=== PATIENT | male | born 1950 | race Caucasian/White ===

== ENCOUNTER → 2016-12-18 | Outpatient (CLI) | payer OTHER | LOC: FIMAGING 13:07 | PROVIDERS: ATTEND Internal Medicine Hematology & Oncology | DX: Z13.828 Encounter for screening for other musculoskeletal disorder (principal) ==

== ENCOUNTER 2018-12-31 02:52 | Inpatient (IN) | payer OTHER ==
[2018-12-31] MEDS ORDERED: ASPIRIN 81 MG CHEWABLE TAB PO ONE (03:04)
[2018-12-31 03:16] LABS: PLATELET COUNT 145 10^3/uL (150-400)
[2018-12-31] MEDS ORDERED: ONDANSETRON 4 MG/2 ML VIAL ONE (03:25)
[2018-12-31] MEDS ORDERED: ONDANSETRON 4 MG/2 ML VIAL IVP ONE ×2 (03:26→03:27)
--- NOTE | 2018-12-31 03:38 | EDPHY ---
H & P Stated Complaint: CP since 1800 Time Seen by Provider: 12/31/18 02:58 HPI/ROS: HPI The patient presents with epigastric and chest pain which has been present since 6:00 p.m. Last night after eating a hamburger for dinner. The pain is dull and aching, radiates to his left armpit and is associated with some tingling of his left arm. He has nausea and fatigue as well. He tried taking baking soda, Tums, senna at home with no improvement in his symptoms. He sat in a chair and tried to rest. He tried to sleep and was not able to.. REVIEW OF SYSTEMS 10 systems were reviewed and negative with the exception of the elements mentioned in the history of present illness. PMHx: Hypertension, history of gastric ulcer, had a stress test in 2004 which he believes was negative Soc Hx: Here with his , previous cigarette smoker FHx: No family history of CAD PHYSICAL General Appearance: Alert, no distress Eyes: Pupils equal and round no pallor or injection ENT, Mouth: Mucous membranes moist Respiratory: There are no retractions, lungs are clear to auscultation Cardiovascular: Regular rate and rhythm Gastrointestinal: Abdomen is soft and non-tender, no masses, bowel sounds normal Neurological: A&O, moves all extremities Skin: Warm and dry, no rashes Musculoskeletal: Neck is supple non tender Extremities: symmetrical, full range of motion Psychiatric: Patient is oriented X 3, there is no agitation Source: Patient Exam Limitations: No limitations - Personal History Current Tetanus/Diphtheria Vaccine: Yes - Medical/Surgical History Hx Asthma: No Hx Chronic Respiratory Disease: No Hx Diabetes: No Hx Cardiac Disease: No Hx Renal Disease: No Hx Cirrhosis: No Hx Alcoholism: No Hx HIV/AIDS: No Hx Splenectomy or Spleen Trauma: No Other PMH: irrgular heartbeat, esophogus spasm, - Social History Smoking Status: Former smoker Constitutional: Initial Vital Signs Temperature (C) 36.9 C 12/31/18 02:53 Heart Rate 92 12/31/18 02:53 Respiratory Rate 18 12/31/18 02:53 Blood Pressure 130/87 H 12/31/18 02:53 O2 Sat (%) 96 12/31/18 02:53 O2 Delivery Mode Nasal Cannula O2 (L/minute) 2 Allergies/Adverse Reactions: No Known Allergies Allergy (Verified 12/31/18 09:44) Home Medications: Medication Instructions Recorded Aspirin [Aspirin 81mg (*)] 81 mg PO DAILY 12/31/18 C/E/Zn/Cu/OM3/DHA/EPA/LUT/ZEAX 2 each PO DAILY 12/31/18 [Preservision Areds 2 Softgel] Carvedilol Phosphate [Coreg Cr] 40 mg PO DAILY 12/31/18 Cholecalciferol Vit D3 [Vitamin D3 1,000 units PO DAILY 12/31/18 (*)] Herbals/Supplements -Info Only 1 ea PO DAILY 12/31/18 Lansoprazole [Prevacid] 30 mg PO DAILY 12/31/18 Lipase/Protease/Amylase [Vishnu Delacruz 1 each PO TID PRN 12/31/18 36,000 Units Capsule] Lipase/Protease/Amylase [Vishnu Delacruz 2 each PO TIDMEAL 12/31/18 36,000 Units Capsule] Ranitidine HCl [Zantac] 300 mg PO HS 12/31/18 Medical Decision Making - Diagnostics EKG Interpretation: EKG: Complete interpretation has been separately recorded in the [facility] archive. Summary impression: ST segment depression in lateral leads Differential Diagnosis: 68-year-old man with hypertension, esophageal spasm, history of throat CA presents from home with epigastric pain with radiation to his left axilla since 6:00 p.m. Last night continuously. Here, vital signs are normal, he is generally well-appearing. Plan for aspirin, morphine as needed. Differential includes ACS, GERD, gastritis. 3:25 a.m.- Patient's troponin is elevated at 6. I have paged the [employer] network engineer Dr. Xie. 3:34 a.m.- I discussed the case with Dr. Xie given the patient's ST segment depressions , we will take the patient to the ear mold laboratory technician. We have called a cardiac alert. The patient will be taken directly there. Critical Care Time: CRITICAL CARE Critical care time spent by me, Dr. Hyatt, exclusively with this patient was 20 minutes, exclusive of PA time and exclusive of procedures. The organ system at risk was cardiac and I gave morphine, aspirin, emergently transfer the patient to the cardiac catheterization lab to prevent worsening of the patients condition. - Data Points Laboratory Results: Laboratory Results 12/31/18 03:12/31/18 03:05 Medications Given: Aspirin Buffered (Aspirin Ec) 325 mg PO DAILY [facility] Stop: 06/29/19 08:59 Last Admin: 12/31/18 09:52 Dose: 325 mg Famotidine (Pepcid) 20 mg PO BID [facility] Stop: 06/29/19 08:59 Last Admin: 12/31/18 21:27 Dose: 20 mg Lisinopril (Zestril) 2.5 mg PO DAILY [facility] Stop: 06/29/19 08:59 Last Admin: 12/31/18 09:52 Dose: 2.5 mg Metoprolol Tartrate (Lopressor) 12.5 mg PO BID [facility] Stop: 06/29/19 08:59 Last Admin: 12/31/18 21:27 Dose: 12.5 mg Miscellaneous Medication (Lipase/Protease/Amylase [Creon Dr 36,000 Units Capsule ]) 2 each PO TIDMEAL [facility] Stop: 06/29/19 17:59 Last Admin: 12/31/18 17:28 Dose: Not Given Ondansetron HCl (Zofran) 2 - 4 mg IVP Q6HRS PRN PRN Reason: Nausea/Vomiting, Can't Take PO Stop: 06/29/19 05:05 Last Admin: 12/31/18 06:47 Dose: 4 mg Rosuvastatin Calcium (Crestor) 20 mg PO DAILY [facility] Stop: 06/29/19 08:59 Last Admin: 12/31/18 09:52 Dose: 20 mg Discontinued Medications Aspirin (Aspirin) 324 mg PO EDNOW ONE Stop: 12/31/18 03:05 Last Admin: 12/31/18 03:10 Dose: 324 mg Sodium Chloride (Ns) 1,000 mls @ 100 mls/hr IV CONT [facility] Stop: 12/31/18 15:14 Last Admin: 12/31/18 05:49 Dose: 1,000 mls Morphine Sulfate (Morphine) 2 mg IVP EDNOW ONE Stop: 12/31/18 03:29 Last Admin: 12/31/18 03:31 Dose: 2 mg Ondansetron HCl (Zofran) 2 mg IVP EDNOW ONE Stop: 12/31/18 03:27 Last Admin: 12/31/18 03:52 Dose: Not Given Ondansetron HCl (Zofran) 4 mg IVP EDNOW ONE Stop: 12/31/18 03:28 Last Admin: 12/31/18 03:29 Dose: 4 mg Prasugrel (Effient) 60 mg PO ONCE ONE Stop: 12/31/18 05:07 Last Admin: 12/31/18 05:42 Dose: 60 mg Point of Care Test Results: Chemistry 12/31/18 03:08 POC Troponin I 6.56 ng/mL H ng/mL (0.00-0.08) Departure - Departure Disposition: [facility] Acute Clinical Impression: Chest pain, Acute coronary syndrome Condition: Fair
[2018-12-31] MEDS ORDERED: CLOPIDOGREL BISULFATE 75 MG TAB ONE (03:49)
[2018-12-31] MEDS ORDERED: LIDOCAINE 1% 300 MG/30 ML SDV ONE (04:07)
[2018-12-31] MEDS ORDERED: fentaNYL 100 MCG/2 ML INJ ONE (04:07)
[2018-12-31] MEDS ORDERED: MIDAZOLAM 2 MG/2 ML VIAL ONE (04:07)
[2018-12-31] MEDS ORDERED: IOPAMIDOL (ISOVUE-370) 150 ML BTL IV ONE (04:08)
[2018-12-31] MEDS ORDERED: BIVALIRUDIN 250 MG/5 ML VIAL IV ONE (04:29)
[2018-12-31] MEDS ORDERED: EPINEPHrine 1 MG/10 ML SYR IVP ONE (04:29)
[2018-12-31] MEDS ORDERED: ATROPINE SULFATE 1 MG/10 ML SYR ONE (04:29)
[2018-12-31] MEDS ORDERED: PRASUGREL HCL 10 MG TAB ONE (05:00)
[2018-12-31] MEDS ORDERED: OXYCODONE/APAP 5/325 TAB PO PRN (05:06)
[2018-12-31] MEDS ORDERED: NITROGLYCERIN 0.4 MG BTL SL PRN (05:06)
[2018-12-31] MEDS ORDERED: ONDANSETRON 4 MG/2 ML VIAL IVP PRN (05:06)
[2018-12-31] MEDS ORDERED: PRASUGREL HCL 10 MG TAB PO ONE (05:06)
[2018-12-31] MEDS ORDERED: ATROPINE SULFATE 1 MG/10 ML SYR IVP PRN (05:06)
[2018-12-31] MEDS ORDERED: LORazepam 2 MG/ML INJ IVP PRN (05:06)
[2018-12-31] MEDS ORDERED: TEMAZEPAM 15 MG CAP PO PRN (05:06)
[2018-12-31] MEDS ORDERED: HYDROCODONE/APAP 5/325 TAB PO PRN (05:06)
[2018-12-31] MEDS ORDERED: NS 1,000 ML IV SCH (05:15)
--- NOTE | 2018-12-31 05:34 | PDPROPOC ---
Sedation Plan of Care Sedation Plan of Care: vital signs stable, mental status noted, patient educated of risks, benefits, alternatives, patient can tolerate sedation ASA Classification: ASA 4 Planned drugs: fentanyl, midazolam Mallampati Score: Class 2 Mallampati Reference Image: Patient passed 3-3-2 rule?: Yes
--- NOTE | 2018-12-31 06:07 | GHP ---
[f rep st] HISTORY AND PHYSICAL DATE OF ADMISSION: 12/31/2018 The patient is a 68-year-old man with a past medical history significant for recent endoscopy perform ed because of iron deficiency anemia on 12/17/2017, revealing a small gastric ulceration without feat ures of active bleeding, as well as multiple other excoriations consistent with gastritis. The patie nt was also found to have a sessile polyp in the region within the sigmoid colon that was biopsied an d thought to represent colitis. He went to his GI doctor for followup of that issue and was told stephanie t the biopsies were negative for cancer. 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 The lymph nodes were negative and he was thought to have a surgical cure in 2004. The patient was placed on Prevacid in the morning and Zantac 150 mg in the afternoon. After dinner l ast evening, began to experience chest pressure and tightness which radiated into the inner aspect of his left arm and was associated with 8/10 discomfort. The discomfort decreased initially but then w axed and waned and became more severe, causing him to present to the emergency department after he di d not have improvement with baking soda, Tums or senna at home. He was unable to sleep secondary to chest pain and only came to the hospital for further evaluation. Of note is that the patient had a h istory also of esophageal spasm in the past with very similar symptoms, except when he had an esophag eal spasm 15 years ago he did not experience pain radiating into the left arm at that time. The patient presented to the emergency department with active chest pain in progress. An EKG was obt ained at 3:02. I was called at 3:35 because a point of care troponin came back at 6 after the patien t had incomplete resolution of his chest pain symptoms with morphine. REVIEW OF SYSTEMS: A 10-point review of systems other than recently noted symptoms is negative excep t as listed in the history of present illness. PAST MEDICAL HISTORY: Significant in the ER record for history of hypertension which the patient den ies, history of gastric ulcer diagnosed 12/17 via an EGD. He also has recent iron deficiency anemia, which is what prompted the upper and lower endoscopy identifying a sessile polyp in his colon. He a lso has a history of esophageal spasm as previously mentioned as well as a tonsillar cancer with lymp h node dissection on the right side. PAST SURGICAL HISTORY: Significant for bilateral hernia repair as well as a vasectomy. 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 He is here with h is . He is a previous cigarette smoker and used to drink alcohol but quit both of those after hi s cancer diagnosis. FAMILY HISTORY: Negative except that he remembers that his father had a cardiac event of some type l ater in life. PHYSICAL EXAMINATION: The patient appears worried. He is alert, oriented x3. VITAL SIGNS: Initial ly showed a blood pressure of 131/87, heart rate was 76 and regular, respirations 16 and unlabored. The patient has a 99% sat on 2 L via nasal cannula. NECK: Reveals no JVD. There is a well-healed i ncision/scar of right-sided lymph node dissection. This does not appear to have been a radical neck dissection. HEART: Reveals a normal S1 and S2 with a systolic 2/6 systolic murmur consistent with m itral regurgitation. There are no carotid bruits. HEART: Reveals normal S1, S2 without S3, S4. CORY NGS: Clear to auscultation bilaterally without wheezes, rales or rhonchi. ABDOMEN: Benign with pos itive bowel sounds. It is nondistended, nontender. EXTREMITIES: Warm to touch and dry with intact peripheral pulses in the femoral, dorsalis pedis, posterior tibial, and radial distribution bilateral ly. PSYCHIATRIC: Significant for worry and anxiety, but again the patient is alert and oriented x3 and cooperative. NEUROLOGICAL: Nonfocal in spite of his left-sided and left arm discomfort and weak ness. He has normal handgrip strength on the right and left side and does not have lateralizing sign s on examination. LABORATORY STUDIES: Reveal a white count of 9.72, H and H of 15.1 and 43.0, platelet count 145, the RDW is 15.4, neutrophils are 78.7, lymphocytes are 9.8. The absolute neutrophils are high at 7.65 co nsistent with a demarginating process. Chemistry shows sodium 137, potassium 3.8, chloride 102, BUN and creatinine of 19 and 0.8 with a glucose of 142, which is a nonfasting sample. Calcium is 9.2. P oint of care troponin is 6.56 as an initial measurement. The EKG shows normal sinus rhythm with an abnormal ST-T wave contour in lead III. There is also ST d epression with early R-wave progression in V2, V3, and V4, consistent with ischemia. There are micro Q-waves in II, III, and aVF which are of unclear significance given that they do not meet criteria f or pathological Q-waves. The EKG is most impressive for an injury pattern in lead III as well as rec iprocal change if not posterior injury pattern in the precordial leads extending from V2 through V6. The chest x-ray does not reveal x-ray evidence of aortic dissection. Both the EKG and the chest x-r ay are interpreted by me. The patient has increased markings in the interstitium which may be consis tent with early failure. There is no evidence of pneumothorax or an active pneumonia. There are anastacia nges consistent with old granulomatous disease and as I said, the aortic contour is normal. There ar e osteophytes of thoracic spine consistent with the patient's age with the fusion of anterior bodies. I do not identify another acute process or abnormalities within the soft tissue of the visualized p ortion of the chest. IMPRESSION/PLAN: The patient has ongoing chest pain in spite of intravenous morphine and oral aspiri n and has an abnormal EKG and elevated troponin consistent with at minimum a subendocardial myocardia l infarction with possible posterior extension. The patient would benefit from emergent cardiac cath eterization and therefore cardiac alert has been called. I have explained the risks, benefits, and a lternatives of angiography to the patient, who understands and willing to proceed as planned, with sp ecific attention to the fact that he was recently diagnosed with a gastric ulcer, and if indeed he is found to have obstructive coronary disease as is expected on the basis of his EKG and troponin findi ngs as well as clinical symptoms, that he may be at greater risk than average for bleeding which may require transfusion. He would therefore be typed and screened for blood, and the patient has agreed to receive blood if it was felt to be necessary to receive blood products in the event that it was be ing given to try to save his life. I discussed these matters in detail with the patient's family, in detail but quickly given the urgency of the patient's clinical condition and his ongoing chest disco mfort. Copy requested to: Patient's GI Doctor /[id number]/MODL
--- NOTE | 2018-12-31 06:32 | CPIP ---
[f rep st] INVASIVE CARDIAC PROCEDURE PROCEDURE PERFORMED: 1. Selective coronary angiography. 2. Left heart catheterization. 3. Left ventriculogram. 4. Angio-Seal arteriotomy repair. COMPLICATIONS: None. INDICATIONS: Acute subendocardial myocardial infarction with suspected inferior injury and possible posterior extension on the EKG COMPLICATIONS: None. PROCEDURE IN DETAIL: After informed consent was obtained, n.p.o. status was performed. The region of the right groin was cleaned, prepped, and draped in sterile fashion. The patient received approximately 10 cc of 1% lidocaine for local anesthesia. A micropuncture set was used to gain access to the common femoral artery on the right side. The micropuncture set was exchanged for a regular 6-Cambodian short sheath. The patient then underwent the previously mentioned diagnostic procedure with use of a 6-Cambodian JR4 and 6-Cambodian JL4 diagnostic catheter. Standard wire exchange technique was utilized for all catheter exchanges. A 6-Cambodian pigtail catheter was also used and ultimately a 6-Cambodian Cordis guiding catheter was used for guide catheter support. Standard wire exchange technique was used for all catheter exchanges. The right coronary artery is dominant and approximately 3-1/2 mm in size. It is totally occluded at the acute margin of the heart and distal to a conus and RV branch. There is JHON 0 flow without evidence of right to right collaterals. The left main coronary lumen is approximately 6 mm in size and bifurcates into an LAD and circumflex system. The LAD is approximately 3 mm in size and has luminal irregularity consistent with underlying atherosclerosis. The left main trifurcates into an LAD, ramus, and circumflex system. The ramus vessel is approximately 1.5 mm in size and is a relatively small vessel. The circumflex is approximately 3.5 mm in size and has an 80% stenosis in its proximal segment prior to giving rise to a bifurcating obtuse marginal system. There is complex atheroma involving the bifurcation of the alpha and beta branches of the circumflex obtuse marginal system as well. The LAD is approximately 3 mm in size proximally, giving rise to a long and principal diagonal vessel. The LAD has luminal irregularity consistent with underlying atherosclerosis. Maximal luminal stenosis is approximately 40% in the proximal segment. There is JHON-3 flow throughout the left coronary system, and I do not appreciate evidence of significant distal collaterals, although weak left-to -left collaterals to a very distal and dominant right coronary artery branch is best visualized in an JONAS and cranial projection. We turned our attention to the right coronary lesion. The patient received intravenous bolus of and infusion of Angiomax, and appropriate ACT was documented during the case. A 6- Cambodian JR4 Cordis catheter was used for guide catheter support. A 0.01 intuition wire was advanced across the lesion in question under direct fluoroscopic and angiographic guidance. A 2-0 x 12 Emerge balloon was used for primary angioplasty of the lesion to improve flow from JHON 0 to JHON 1 with residual 80% stenosis and residual visible thrombus within the vessel, looked to be a fairly large thrombus burden. A 3.5 x 28 synergy drug-eluting stent was used to secondarily stent the blood vessel at a maximum pressure of 14 atmospheres, demonstrating excellent and JHON-3 flow. We were able to trap the majority of the thrombus against the sidewall of the blood vessel. There was no evidence of edge dissection. There were distal luminal irregularities consistent with underlying atherosclerosis. Maximal luminal stenosis was at the PDA and PLV branch takeoff with estimated stenosis of 30% each in those vessels. The right coronary artery is so-called superdominant as it continues in the posterior AV groove, giving rise to multiple posterolateral ventricular branches, which often usually arise from the circumflex proper. This is a congenital variation of normal cardiac circulation. There was 0% residual stenosis status post PTCA and stent implantation with excellent JHON-3 flow to the distal vessel and no evidence of edge dissection at the proximal or distal region of the stent implantation. There was good stent geometry and good stent expansion as well. The patient underwent left heart catheterization demonstrating elevated left ventricular end-diastolic pressure measured at 26 mmHg. The patient underwent a left ventriculogram in the JONAS projection, demonstrating preserved anterior wall and distal apical function with severe inferior wall hypokinesis with associated significant 2 to 3+ mitral regurgitation on pressurized injection. Overall ejection fraction was estimated to be 35-40 percent. FINAL IMPRESSION: Successful acute infarction angioplasty for indication of chest pain and abnormal EKG suggestive of inferior injury with probable true posterior injury. Door to balloon time was delayed secondary to a 35-minute gap between the initial EKG and the call to the cardiac alert team if a door to balloon time needs to be recorded in this patient with a confusing initial presentation and history of esophageal spasm as well as gastric ulcer recently diagnosed with pain beginning after a meal. The patient will be admitted to the ICU in serious, but stable condition, and the patient will be initiated on aspirin and Effient in combination. I will also place the patient on low-dose beta kamla and GÓMEZ inhibitor as tolerated. A fasting lipid panel will be obtained. The patient will be placed on rosuvastatin 20 given the diffuse nature of his coronary disease. The patient' s troponins and EKGs will be trended over the next 18 hours, and an echocardiogram will need to be performed to evaluate for ejection fraction and papillary muscle dysfunction given the location of the NH and the visible mitral regurgitation on clinical examination, as well as on the left ventriculogram. The patient may benefit in the future from a balloon angioplasty and stent implantation of the circumflex as well as repair of the alpha and beta branch bifurcation of a significant obtuse marginal system posteriorly. I did not attempt to do ad Hoc intervention of that region given the RCA occlusion with distal and posterior wall extension. The reason for that consideration was that if we lost blood flow to that region of his heart as well with a significant stunning and reduction in ejection fraction, that it may be dangerous to the patient and do more harm than good in the acute setting. Certainly, an elective PCI of the proximal circumflex and obtuse marginal system should be considered, especially if the patient has evidence of symptoms or has a large zone of ischemia in that region once he has recovered from the acute myocardial injury process. /[id number]/MODL MTDD
--- NOTE | 2018-12-31 09:32 | PDMN ---
Medical Necessity Medical necessity: MCG: M230 SD 2 days: 68yo M presents with chest pressure /tightness radiating to L arm 8/10 discomfort. unable to sleep EKG abnormal with elevated trop consistent with min. subendocardial SD. with poss posterior extension pt taken emergently to cardiac cath.
[2018-12-31] MEDS: ROSUVASTATIN CALCIUM 20 MG TAB PO SCH (09:52)
[2018-12-31] MEDS: ASPIRIN EC 325 MG TAB PO SCH (09:52)
[2018-12-31] MEDS: FAMOTIDINE 20 MG TAB PO SCH ×2 (09:52→21:27)
[2018-12-31] MEDS: METOPROLOL TARTRATE 25 MG TAB PO SCH ×2 (09:52→21:27)
[2018-12-31] MEDS: LISINOPRIL 2.5 MG TAB PO SCH (09:52)
--- NOTE | 2018-12-31 11:56 | ASMTCMCOM ---
CM Note CM Note Notes: Pt is a 68 yo M, presented as cardiac alert. Underwent emergent heart cath. Plans for stent to be placed on Thursday. Pt's is at bedside and supportive. CM to follow. Discharge plan TBD. Plan: TBD Date Signed: 12/31/2018 11:55 AM Electronically Signed By:HAI Coronel
[2018-12-31] MEDS: CREON 36000 UNIT PO SCH (17:28)
--- NOTE | 2018-12-31 17:34 | GCON ---
[f rep st] CONSULTATION CRITICAL CARE CONSULTATION DATE OF CONSULTATION: 12/31/2018 REASON FOR CONSULTATION: Intensive care unit evaluation and management following myocardial infarcti on and stenting. HISTORY: The patient is a very pleasant 68-year-old. He developed chest pain last night after dinne r. This radiated to his left arm, waxed and waned, and did not respond to positional changes, Tums, etc. He presented to the emergency department. He was initially felt to have a GI related pain issu e, as he has had a problem with reflux and gastric ulceration in the past. Troponin was found to be elevated. Cardiac alert was called. He was taken to the cleaning laborer where the right coronary artery wa s found to be occluded. Stenting was accomplished. A lesion was also found in the circumflex, 80%, with an LAD lesion of approximately 40%. These are going to be addressed in a few days. Following t he procedure, the patient was admitted to the intensive care unit for further observation in good con dition. He has received anti-platelet therapy with Effient and aspirin. He is on lisinopril and met oprolol as well. He has had no problems in the intensive care unit. He feels fairly well at this point, has no compla ints, no chest pain. 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 Surgeries have included herniorrhaphy and vasectomy. SOCIAL HISTORY: The patient is retired. 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 He is ma rried, lives on property outside of [place]. He smoked cigarettes in the past, but has not smoked for approximately 15 years. Alcohol is negative. FAMILY HISTORY: Negative/noncontributory. REVIEW OF SYSTEMS: A 10-point review of systems is negative, except as outlined above. There is no history of smoking-related lung disease. PHYSICAL EXAMINATION: GENERAL: Pleasant gentleman who is lying comfortably in bed in the intensive care unit. He is on no oxygen. VITAL SIGNS: Blood pressure is approximately 140/70, heart rate 70 with sinus rhythm on the monitor. Saturations are 95%. He is afebrile. HEENT: Unremarkable for ly mphadenopathy or thyromegaly. There is no jugular venous distention. CHEST: Clear bilaterally. HE ART: Regular in rate and rhythm. There are no gallops, no murmurs. ABDOMEN: Soft, nontender. [place] el sounds are present. EXTREMITIES: Without edema, cords, or tenderness. NEUROLOGIC: Examination is within normal limits. LABORATORY: White blood cell count is 9700, hematocrit 43, platelets 145,000. Basic metabolic panel is within normal limits. Troponin was 6.5 on admission, most recently 92. AST is elevated at 156. Cholesterol is low. ASSESSMENT: 1. Coronary artery disease. 2. Acute myocardial infarction. 3. Status post stenting of the right coronary artery. 4. History of gastroesophageal reflux and recent gastric ulcer. He is on famotidine. 5. History of squamous cell carcinoma of the tongue. PLAN AND RECOMMENDATIONS: The patient will be kept in the intensive care unit. Cardiac hemodynamics will be monitored. Anti-platelet agents will be continued along with lisinopril and metoprolol. Fa motidine will be continued. By report, the plans are to repeat cardiac catheterization and possibly stent the circumflex in several days. Further plans and recommendations will be made based on his progress over the next 12-24 hours. /[id number]/MODL
[2019-01-01 04:57] LABS: PLATELET COUNT 124 10^3/uL (150-400)
[2019-01-01] MEDS: ASPIRIN EC 325 MG TAB PO SCH (08:43)
[2019-01-01] MEDS: FAMOTIDINE 20 MG TAB PO SCH ×2 (08:43→21:00)
[2019-01-01] MEDS: METOPROLOL TARTRATE 25 MG TAB PO SCH ×2 (08:44→21:00)
[2019-01-01] MEDS: PRESERVISION AREDS2 FORMULA EYE VIT 1 EACH PO SCH (08:44)
[2019-01-01] MEDS: PRASUGREL HCL 10 MG TAB PO SCH (08:44)
[2019-01-01] MEDS: LISINOPRIL 2.5 MG TAB PO SCH (08:44)
[2019-01-01] MEDS: CREON 36000 UNIT PO SCH ×4 (08:47→18:18)
[2019-01-01] MEDS ORDERED: Herbals/Supplements -Info Only PO SCH (09:00)
--- NOTE | 2019-01-01 10:01 | PDCARPN ---
Cardiology Progress Note Chief Complaint: Patient doing well today. No further bouts of chest pains or discomfort have been noted Assessment/Plan: Assessment: Patient is a 68 y/o male with history of tonsillar cancer (squamous cell), HTN, a "viral" cardiomyopathy (for which the patient had regular cardiology follow up in [place] several years ago), borderline DM, and gastric ulcer, but no history of HLP or CAD, who presented to [facility] ER with complaints of chest pains with associated symptoms. ECG and labs (cardiac biomarkers) with abnormalities noted, and the patient was subsequently taken to the cardiac catheter builder by my partner, Dr. Deborah Xie. Complete occlusion of the RCA (a superdominant vessel) was noted as well as critical LCX (80%) and moderate LAD (40%). Moderate reduction in LVEF was noted by left ventriculogram (35-40%). Yesterday, the patient did well without reports of significant ventricular ectopy. Echocardiography was performed, but formal read is pending. Troponin peak to 92 ng/mL (down to 56 ng/mL yesterday afternoon). was at bedside today. Questions about medical therapy were answered today. Plan: (1) ASA therapy for life given newly stented RCA lesion as well as residual stenosis to the LCX - aware of the GI/gastritic history (2) Effient should continue for a minimum of one year given the DINORAH PCI (3) Crestor should continue for the newly noted CAD with PCI - aware of the fact that the patient has not had "bad" cholesterol issues in the past, but this therapy should be started to further suppress LDL/TRI levels - would have reassessment of both cholesterol and LFTs in 5 weeks (4) Beta blockers and ACEi therapy for the CMP (ischaemic) that has been noted post PCI - would prefer the patient be on Coreg therapy at the time of discharge ( rather than lopressor) (5) Pepcid to continue with gastritis history (6) Cardiac rehab to be set up (7) Patient with residual LCX stenosis noted - no clear time frame on intervention has been discussed with the patient - son's wedding in three weeks (out of state) might make more aggressive management of this lesion more appealing to patient rather than attempts at addressing this (a) closer to the wedding or (b) after the wedding - will discuss with interventional cardiology Subjective: Patient doing well today. No active cardiovascular complaints Reviewed/Discussed With: family Objective: Vital Signs (8 Hrs) Temp Pulse Resp BP Pulse Ox 01/01/19 08:44 92/60 L 01/01/19 08:00 36.6 C 84 16 92/60 L 94 01/01/19 06:00 66 17 90/59 L 95 01/01/19 04:00 70 13 94/60 L 93 Intake/Output (24 Hrs) 12/31/18 01/01/19 01/02/19 05:59 05:59 05:59 Intake Total 710 Balance 710 Intake: IV Intake (ml) 600 IV Infused (ml) 110 Ns 1,000 ml @ 100 mls/hr 110 IV CONT MEKA Rx#: [id number] Other: Weight 94.5 kg Intake Quantity Yes Sufficient Number of Voids Toilet 2 Result Diagrams: 01/01/19 04:47 01/01/19 04:47 Cardiac Labs: Cardiac Lab Results (72 Hrs) 12/31/18 12/31/18 12/31/18 19:00 12:30 05:55 Troponin I 58.600 H 92.900 H 87.000 H EKG: sinus rhythm with IVCD and subtle ST/T wave changes to the inferior leads Telemetry: sinus rhythm Echocardiogram: see formal read - Physical Exam Constitutional: WDWN, healthy appearing, no apparent distress Eyes: PERRL, EOMI Ears, Nose, Mouth, Throat: moist mucous membranes Cardiovascular: regular rate and rhythm, no murmurs, no rubs, no gallops, pulses symmetric bilat, No jugular vein distention Peripheral Pulses: 2+: dorsalis-pedis (R), dorsalis-pedis (L) Respiratory: clear to auscultate bilat, no crackles, no wheezes Gastrointestinal: normoactive bowel sounds Skin: no rashes, no edema Musculoskeletal: no muscular tenderness Neurologic: AAOx3, CN II-XII grossly intact Psychiatric: cooperative, interactive, following commands ICD10 Worksheet Patient Problems: Problems Problem Status Onset Acute coronary syndrome Acute Chest pain Acute Myocardial infarct Acute
--- NOTE | 2019-01-01 10:36 | ECHO ---
[email or web address] [address] [address] Main: [phone] Echocardiography Examination Transthoracic Name: TAMARA COLLINS MR#: [id number] Study Date: 01/01/2019 Study Time: 07:36 AM Date of : 1950 Age: 68 year(s) Height: 190.5 cm (75 in.) Weight: 94.35 kg (208 lb.) BSA: 2.23 m2 Gender: Male Examination: Echo Contrast: Image Quality: Fair Rhythm: Heart Rate: BP: 90 mmHg/59 mmHg Indication: LV recovery/Eval MR Procedure Staff Referring Physician: Specialty Sales Representative: Jennifer Mcduffie [facility] Reading Physician: Justin Segura MD Requesting Provider: Ordering Physician: Brennon Fam MD Indication: LV recovery/Eval MR Measurements Chambers AV/MV Label Value Normal Value Label Value Normal Value EF lower range (%) 45 % AV PGmean 3 mmHg EF upper range (%) 50 % AV Vmax 1.06 m/s IVSd, 2D 1.1 cm (0.6cm - 1.1cm) MV A Vmax 0.81 m/s LVDd, 2D 5.8 cm (4.2cm - 5.9cm) MV E' lateral 0.06 m/s LVDs, 2D 4.6 cm (2.1cm - 4cm) MV E' mean 0.06 m/s LVEF, 2D 41 % (54% - 74%) MV E' septal 0.07 m/s LVOTd 2.1 cm (1.9cm - 2.1cm) MV E Vmax 0.8 m/s LVPWd, 2D 1.2 cm (0.6cm - 1cm) MV E/A 0.99 LA Volume, BP 48 ml (18ml - 58ml) MV E/E' lateral 12.9 LADs, 2D 4.3 cm (3cm - 4cm) MV E/E' mean 12.31 LAESV index, BP 21.5 ml/m2 MV E/E' septal 12 (0.45 - 1.25) Additional Vessels Label Value Normal Value AoAsc 3.6 cm Conclusions Left Ventricle: Mildly reduced systolic left ventricular function. Patient: TAMARA COLLINS Study Date: 01/01/2019 Page 1 of 3 07:36 AM EF range is estimated at 45 % - 50 %. The basal inferolateral and mid inferolateral left ventricular wall segments are hypokinetic (2). The left ventricular wall segments are akinetic (3). All remaining scored left ventricular wall segments are with no wall motion abnormalities (1). Right Ventricle: Right ventricular systolic function is mildly reduced. Mitral Valve: Mitral valve appears structurally normal. Mild mitral regurgitation. Findings Left Ventricle: Left ventricle is normal in size. Mildly reduced systolic left ventricular function. EF range is estimated at 45 % - 50 %. There is mild concentric left ventricular hypertrophy. The basal inferolateral and mid inferolateral left ventricular wall segments are hypokinetic (2). The basal inferior and mid inferior left ventricular wall segments are akinetic (3). All remaining scored left ventricular wall segments are with no wall motion abnormalities (1). Grade I Diastolic Dysfunction. IVS: The septum is intact. Right Ventricle: Normal size right ventricle. Right ventricular wall thickness is normal. Right ventricular systolic function is mildly reduced. Left Atrium: The left atrium is normal in size. IAS: Normal appearing atrial septum. Right Atrium: The right atrium is dilated. Mitral Valve: Mitral valve appears structurally normal. Mild mitral regurgitation. No mitral valve stenosis. Aortic Valve: Aortic leaflets exhibit normal cuspal separation. No aortic valve regurgitation. There is no aortic stenosis. The aortic valve is trileaflet. Tricuspid Valve: Tricuspid valve leaflets are normal in appearance and function. Mild tricuspid regurgitation. No tricuspid valve stenosis. Pulmonary artery pressure normal. Pulmonic Valve: Pulmonic leaflets exhibit normal cuspal separation. No pulmonic valve regurgitation is evident. There is no pulmonic valve stenosis. Aorta: The aorta is normal. The ascending aorta measures 3.6 cm. Pulmonary Artery: The pulmonary artery morphology appears normal. IVC: The inferior vena cava is normal in size. There is inspiratory collapse of the IVC. Pericardium: No pericardial effusion. No pleural effusion present. Exam Details Procedure Ordered: Echo Image Quality: Fair Patient: TAMARA COLLINS Study Date: 01/01/2019 Page 2 of 3 07:36 AM (No Signature Object) Wall Motion Scores Patient: TAMARA COLLINS Study Date: 01/01/2019 Page 3 of 3 07:36 AM [id number]
[2019-01-01] MEDS: ROSUVASTATIN CALCIUM 20 MG TAB PO SCH (10:39)
--- NOTE | 2019-01-01 11:46 | CPEKG ---
Test Reason : OPEN Blood Pressure : / mmHG Vent. Rate : 065 BPM Atrial Rate : 068 BPM P-R Int : 157 ms QRS Dur : 107 ms QT Int : 450 ms P-R-T Axes : 069 -73 -35 degrees QTc Int : 468 ms Sinus rhythm Inferior infarct, age indeterminate Confirmed by Cristian Kee ([id number]) on 01/01/2019 11:45:46 AM Referred By: Vineet Xie Confirmed By:Cristian Kee
[2019-01-01] MEDS ORDERED: NS 500 ML IV ONE ×3 (12:07→16:00)
--- NOTE | 2019-01-01 15:47 | PDINTPN ---
Retanner Progress Note Assessment/Plan: Assessment: Status post inferior wall myocardial infarction with stenting of the RCA. Troponins peaked, now coming down Remaining coronary artery disease: In circumflex. To be addressed probably on Thursday with stenting. History of reflux/esophageal spasm. On famotidine. Plan: Continue care in the intensive care unit. Plans per Cardiology. May be able to go to PCU. Subjective: Doing well, no complaints. Up walking in the [place]. No chest pain. Objective: Vital Signs Temp Pulse Resp BP Pulse Ox 36.6 C 73 20 81/53 L 97 01/01/19 08:00 01/01/19 14:00 01/01/19 14:00 01/01/19 12:00 01/01/19 14:00 Laboratory Results 01/01/19 04:47 01/01/19 04:47 12/31/18 01/01/19 01/02/19 05:59 05:59 05:59 Intake Total 710 Balance 710 Laboratory Tests 12/31/18 01/01/19 19:00 04:47 Calcium 8.6 Magnesium 2.1 Troponin I 58.600 H Physical Exam - Physical Exam General Appearance: alert, no apparent distress EENT: PERRL/EOMI, other (On room air) Neck: normal inspection Respiratory: lungs clear, normal breath sounds Cardiac/Chest: regular rate, rhythm Abdomen: normal bowel sounds, non-tender, soft Skin: normal color, warm/dry Neuro/Psych: no motor/sensory deficits, No cognition abnormalities ICD10 Worksheet Patient Problems: Problems Problem Status Onset Chest pain Acute Acute coronary syndrome Acute Myocardial infarct Acute
[2019-01-01] MEDS ORDERED: SENNOSIDES/DOCUSATE SODIUM TAB PO ONE (15:52)
[2019-01-01] MEDS ORDERED: MAGNESIUM HYDROXIDE 30 ML UDCUP PO PRN (15:57)
[2019-01-01] MEDS ORDERED: BISACODYL 10 MG SUPP PR PRN (15:57)
[2019-01-01] MEDS ORDERED: POLYETHYLENE GLYCOL 3350 17 GM PKT PO PRN (15:57)
[2019-01-01] MEDS ORDERED: LACTULOSE 20 GM/30 ML UDCUP PO PRN (15:57)
[2019-01-01] MEDS: SENNOSIDES/DOCUSATE SODIUM TAB PO SCH (16:38)
[2019-01-02] MEDS: CREON 36000 UNIT PO PRN ×2 (07:42→17:56)
[2019-01-02] MEDS: PRASUGREL HCL 10 MG TAB PO SCH (07:44)
[2019-01-02] MEDS: FAMOTIDINE 20 MG TAB PO SCH ×3 (07:44→21:13)
[2019-01-02] MEDS: PRESERVISION AREDS2 FORMULA EYE VIT 1 EACH PO SCH (07:44)
[2019-01-02] MEDS: LISINOPRIL 2.5 MG TAB PO SCH (07:44)
[2019-01-02] MEDS: ROSUVASTATIN CALCIUM 20 MG TAB PO SCH (07:44)
[2019-01-02] MEDS: METOPROLOL TARTRATE 25 MG TAB PO SCH ×2 (07:45→21:08)
[2019-01-02] MEDS: SENNOSIDES/DOCUSATE SODIUM TAB PO SCH (07:45)
[2019-01-02] MEDS: ASPIRIN EC 325 MG TAB PO SCH (07:45)
--- NOTE | 2019-01-02 09:16 | PDCARPN ---
Cardiology Progress Note Chief Complaint: No cardiovascular complaints today. Mild episode of palpitations yesterday. Assessment/Plan: Assessment: 01-02-19 Patient doing well today. No cardiovascular complaints - no chest pains or pressure. No PND or orthopnea. Discussion with patient today about the residual LCX stenosis noted. Blood pressures were soft last night, and boluses of fluids did seem to help with elevation to pressure. Discussions with patient and yesterday about need to have statins - regardless of how "good " cholesterol was with last assessment. The patient and are wanting to have the remaining LCX stenosis stented, if possible, given pending [place] Ambulation in the halls today has been well tolerated without symptoms or complaints. 01-01-19 Patient is a 68 y/o male with history of tonsillar cancer (squamous cell), HTN, a "viral" cardiomyopathy (for which the patient had regular cardiology follow up in [place] several years ago), borderline DM, and gastric ulcer, but no history of HLP or CAD, who presented to [facility] ER with complaints of chest pains with associated symptoms. ECG and labs (cardiac biomarkers) with abnormalities noted, and the patient was subsequently taken to the cardiac laboratory chemical assistant by my partner, Dr. Deborah Xie. Complete occlusion of the RCA (a superdominant vessel) was noted as well as critical LCX (80%) and moderate LAD (40%). Moderate reduction in LVEF was noted by left ventriculogram (35-40%). Yesterday, the patient did well without reports of significant ventricular ectopy. Echocardiography was performed, but formal read is pending. Troponin peak to 92 ng/mL (down to 56 ng/mL yesterday afternoon). was at bedside today. Questions about medical therapy were answered today. Plan: (1) ASA therapy for life given newly stented RCA lesion as well as residual stenosis to the LCX - aware of the GI/gastritic history (2) Effient should continue for a minimum of one year given the DINORAH PCI (3) Crestor should continue for the newly noted CAD with PCI - aware of the fact that the patient has not had "bad" cholesterol issues in the past, but this therapy should be started to further suppress LDL/TRI levels - would have reassessment of both cholesterol and LFTs in 5 weeks (4) Beta blockers and ACEi therapy for the CMP (ischaemic) that has been noted post PCI - would prefer the patient be on Coreg therapy at the time of discharge ( rather than lopressor) (5) Pepcid to continue with gastritis history (6) Cardiac rehab to be set up (7) Patient with residual LCX stenosis noted - no clear time frame on intervention has been discussed with the patient - son's wedding in three weeks (out of state) might make more aggressive management of this lesion more appealing to patient rather than attempts at addressing this (a) closer to the wedding or (b) after the wedding - will discuss with interventional cardiology - this discussion is ongoing Subjective: No cardiovascular complaints today Reviewed/Discussed With: family Objective: Vital Signs (8 Hrs) Temp Pulse Resp BP Pulse Ox 01/02/19 08:30 73 12 106/63 97 01/02/19 08:00 36.8 C 81 14 108/69 96 01/02/19 07:45 80 105/76 01/02/19 07:44 105/76 01/02/19 07:00 78 12 105/76 97 01/02/19 06:00 80 18 102/64 95 01/02/19 04:00 85 14 104/64 96 01/02/19 02:00 68 16 93/64 L 92 Intake/Output (24 Hrs) 01/01/19 01/02/19 01/03/19 05:59 05:59 05:59 Intake Total 4100 610 Output Total 1675 500 Balance 2425 110 Intake: Oral (ml) 500 610 IV Intake (ml) 2600 IV Infused (ml) 1000 Ns 500 ml @ 150 mls/hr IV 1000 ONCE ONE Rx#:[id number] Output: Urine (ml) 1675 500 Toilet 1675 500 Other: Intake Quantity Yes Sufficient Number of Voids Toilet 2 3 Result Diagrams: 01/01/19 04:47 01/01/19 04:47 Cardiac Labs: Cardiac Lab Results (72 Hrs) 01/01/19 12/31/18 12/31/18 15:25 19:00 12:30 Troponin I 19.000 H 58.600 H 92.900 H 12/31/18 05:55 Troponin I 87.000 H Telemetry: sinus rhythm - Physical Exam Constitutional: WDWN, healthy appearing, no apparent distress Eyes: PERRL, EOMI Ears, Nose, Mouth, Throat: moist mucous membranes Cardiovascular: regular rate and rhythm, no murmurs, no rubs, no gallops Peripheral Pulses: 2+: dorsalis-pedis (R), dorsalis-pedis (L) Respiratory: clear to auscultate bilat, no crackles, no wheezes Gastrointestinal: normoactive bowel sounds Skin: no rashes, no edema Neurologic: AAOx3, CN II-XII grossly intact Psychiatric: cooperative, interactive, following commands ICD10 Worksheet Patient Problems: Problems Problem Status Onset Acute coronary syndrome Acute Chest pain Acute Myocardial infarct Acute
[2019-01-02] MEDS: CREON 36000 UNIT PO SCH ×3 (14:45→17:57)
[2019-01-03] MEDS: SENNOSIDES/DOCUSATE SODIUM TAB PO SCH ×2 (01:15→08:17)
[2019-01-03] MEDS: ASPIRIN EC 325 MG TAB PO SCH (08:15)
[2019-01-03] MEDS: LISINOPRIL 2.5 MG TAB PO SCH (08:15)
[2019-01-03] MEDS: CREON 36000 UNIT PO SCH (08:15)
[2019-01-03] MEDS: PRASUGREL HCL 10 MG TAB PO SCH (08:16)
[2019-01-03] MEDS: PRESERVISION AREDS2 FORMULA EYE VIT 1 EACH PO SCH (08:16)
[2019-01-03] MEDS: FAMOTIDINE 20 MG TAB PO SCH (08:16)
[2019-01-03] MEDS: ROSUVASTATIN CALCIUM 20 MG TAB PO SCH (08:16)
[2019-01-03] MEDS: METOPROLOL TARTRATE 25 MG TAB PO SCH (08:17)
[2019-01-03 11:57] VITALS: BP 110/72
--- NOTE | 2019-01-03 15:06 | GDS ---
[f rep st] DISCHARGE SUMMARY ADMISSION DIAGNOSES: 1. Chest pain. 2. Elevated troponin. 3. Myocardial infarction. HOSPITAL COURSE: He was taken to the cardiac chemical laboratory tester by Dr. Vineet Xie where he found a complete occlusion of the RCA, critical left circumflex 80%, and moderate LAD 40%. Moderate reduction of the LVEF was noted to be 35% to 40%. He did have ventricular ectopy following his cardiac angiogram with stent placement. His troponin peaked at 92, and the following afternoon, was down to 56. He did well post stent placement. He will be managed on aspirin therapy for life, given the newly st ented RCA lesion and residual stenosis of the left circumflex. He will remain on Effient for a minim um of 1 year due to the placement of the DINORAH PCI. Crestor has been started for management of his lip ids with LDL goal of 70 or less. His lipid levels and LFTs should be reassessed in 5 weeks. He will go home on beta kamla and GÓMEZ-I therapy for cardiomyopathy. He will go home on Coreg therapy due to the cardiomyopathy rather than Lopressor. He will continue on Pepcid due to his history of gastri tis. He is to participate in cardiac rehab. He has a residual left circumflex stenosis. In discuss ion with Dr. Vineet Xie this morning, we will plan on PCI of the left [facility]flex [facility] This was discussed with he and his , and both are in agreement with this plan. He has been up ambulating in his room. Groin site is intact with no bleeding, induration, or pain. At this time, he feels stable for discharge. ALLERGIES: He has no known allergies to medications. HOME MEDICATION: He will continue on vitamin D3 at 1000 units daily, Zantac 300 mg at bedtime, Preva dharmesh 30 mg daily, Creon 36,000 units one 3 times a day as needed, PreserVision AREDS2 soft gel daily, herbal supplements 1 daily, Coreg CR 40 mg daily, enteric-coated aspirin 325 mg daily, Zestril 2.5 mg daily, MiraLAX 17 g daily, Effient 10 mg daily, Crestor 20 mg daily. PHYSICAL EXAMINATION: VITAL SIGNS: On day of discharge, blood pressure 110/72, heart rate 70 and re gular, oxygen saturation 97% on room air. EKG showed a normal sinus rhythm. Heart rate regular. No murmurs, rubs, gallops. LUNGS: Clear to auscultation. No wheezes, rales, or rhonchi. SKIN: Righ t groin site is intact with no bleeding, induration, or pain. PERIPHERAL: Extremity pulses are 2+ in tact bilaterally. DISCHARGE PLAN: 1. He will return on , 01/06/2019, for PCI of the left circumflex with Dr. Vineet Xie. 2. Groin care instructions were reviewed verbally and written. No heavy lifting, pushing, pulling g reater than 10 pounds for the next 7 days. Should groin site bleed, hold firm pressure. Go to the [facility] emergency room if bleeding continues. 3. Keep groin site clean with soap and water. Use no ointments. 4. Participate in cardiac rehab program. 5. Follow a low-fat diet. 6. Call [facility] should you have further concerns or questions. 7. At this time, he is stable for discharge. /[id number]/MODL
== END 2019-01-03 12:58 | disposition home or self-care (01) | DRG 229 ==
LOC: F2N 05:08 → F2W 01-02 16:34
PROVIDERS: ADMIT Internal Medicine Cardiovascular Disease; ATTEND Internal Medicine Cardiovascular Disease
DX: I21.4 Non-ST elevation (NSTEMI) myocardial infarction (principal); I25.10 Atherosclerotic heart disease of native coronary artery without angina pectoris; I10 Essential (primary) hypertension; K21.9 Gastro-esophageal reflux disease without esophagitis; Z87.891 Personal history of nicotine dependence; Z87.19 Personal history of other diseases of the digestive system; Z85.89 Personal history of malignant neoplasm of other organs and systems
CPT/HCPCS: 84484-ER; 96374; C1725; C1760; C1769; C1874; C1887; C9606; J0461; J0583; J1644; J2250; J2270; J2405; J3010; Q9967

== ENCOUNTER 2019-01-06 10:29 | Observation (INO) | payer OTHER ==
[2019-01-06] MEDS ORDERED: diphenhydrAMINE 25 MG CAP PO ONE (10:30)
[2019-01-06] MEDS ORDERED: FAMOTIDINE 20 MG TAB PO ONE (10:30)
[2019-01-06] MEDS ORDERED: DIAZEPAM 5 MG TAB PO ONE (10:30)
[2019-01-06] MEDS ORDERED: NS 1,000 ML IV ONE (10:30)
[2019-01-06] MEDS ORDERED: ASPIRIN EC 325 MG TAB PO ONE (10:30)
[2019-01-06 11:09] LABS: PLATELET COUNT 180 10^3/uL (150-400)
[2019-01-06 11:24] LABS: INR 1.07 (0.83-1.16); PROTIME(PATIENT) 13.5 SEC (12.0-15.0)
--- NOTE | 2019-01-06 11:28 | PDHPUP ---
History & Physical Update H&P update statement: This history and physical update is based on an assessment of the patient which was completed after admission or registration (within 24 hours), but prior to the surgery/procedure. H&P update: H&P reviewed & patient examined, changes noted H&P changes: angina post mi known obstruction of left circ, possearly problem with stented RCA.
--- NOTE | 2019-01-06 11:28 | PDPROPOC ---
Sedation Plan of Care Sedation Plan of Care: vital signs stable, mental status noted, patient educated of risks, benefits, alternatives, patient can tolerate sedation ASA Classification: ASA 3 Planned drugs: fentanyl, midazolam Mallampati Score: Class 3 Mallampati Reference Image: Patient passed 3-3-2 rule?: Yes
[2019-01-06] MEDS ORDERED: LIDOCAINE 1% 300 MG/30 ML SDV ONE (12:27)
[2019-01-06] MEDS ORDERED: fentaNYL 100 MCG/2 ML INJ ONE (12:28)
[2019-01-06] MEDS ORDERED: IOPAMIDOL (ISOVUE-370) 150 ML BTL IV ONE (12:28)
[2019-01-06] MEDS ORDERED: MIDAZOLAM 2 MG/2 ML VIAL ONE (12:28)
--- NOTE | 2019-01-06 12:34 | CPEKG ---
Test Reason : OPEN Blood Pressure : / mmHG Vent. Rate : 072 BPM Atrial Rate : 071 BPM P-R Int : 149 ms QRS Dur : 101 ms QT Int : 409 ms P-R-T Axes : 067 -83 -01 degrees QTc Int : 448 ms Sinus rhythm Inferior infarct, old non-specific ST depression anterior-lateral leads. Confirmed by Jasson Spears ([id number]) on 01/06/2019 12:34:19 PM Referred By: Vineet Xie Confirmed By:Jasson Spears
[2019-01-06] MEDS ORDERED: BIVALIRUDIN 250 MG/5 ML VIAL IV ONE ×2 (13:06→14:24)
[2019-01-06] MEDS ORDERED: ETOMIDATE 40 MG/20 ML INJ ONE (13:38)
[2019-01-06] MEDS ORDERED: NITROGLYCERIN 1,500 MCG/15 ML VIAL MISC ONE (14:02)
--- NOTE | 2019-01-06 14:08 | PDDXCAT ---
Diagnostic Cath Note - . Date: 01/06/19 Cherry Cutter: Rojas Indication: CCC Class III and IV angina on medical treatment - Procedure Access: left groin Procedure: left heart catheterization, coronary angiography - Materials Left Heart Cath size: 7F Left Heart Cath materials: other (EBU 3.5) - Findings-Left Heart Catheterization LM: The left main is 6mm in size and trifurcates into a LAD, circumflex and Ramus system. LAD: The left anterior descendinig is 3mm in size. There are luminal irregularities consistent with atherosclerosis. Maximal luminal stenosis is 40%. LCX: The left circumflex is 3.5mm in size and co dominant. There is an 80% lesion in the proxial segment of the vessel prior to the bifurcation of the obtuse marginal. RCA: The right coronary is 3.5mm in size and dominant. The right coronary has been previously stented in the proximal segment. There is JHON III throughout. Ramus: The Ramus is 1.5mm and a small vessel. - Findings-Right Heart Catheterization AO: Complications: NONE Estimated blood loss: <50ml Closure method: Angioseal Assessment: The patient has picayune vessel coronary disease. He had a known 80% lesion of the circumflex prior to the bifurcation of the obtuse marginal. The RCA was previously stented without evidence of in-stent restenosis and JHON III flow throughout. Plan: The patient will be placed on dual antiplatelet therapy with low dose aspirin and Effient. The medical therapy should be continued for at least 1 year following drug eluting stent implantation. No elective surgery for the first 3 months. Decisions to stop dual antiplatelet therapy before 1 year should involve our office [facility] . Intervention: A 7 Chadian EBU 3.5 guiding catheter was used for guide catheter support. A 0.014 " 180 cm Intuition Wire was advanced across the lesion in question under direct fluoroscopic and angiographic guidance. The lesion in the proximal left circumflex was stented with a 3.0 x 15mm Xience Ping Everolimus eluting stent. The in-stent balloon was deployed at 16atm for 20seconds and then inflated at 20atm for 20seconds. A 4.0 x 8mm NC Emerge Balloon was advanced down the wire and deployed at 12atm for 8 seconds accompanied by four more serial inflations. The wire was repositioned across the bifurcation of the OM under direct fluoroscopic and angiographic guidance. A 3.0 x 12mm Xience Ping everolimus eluting stent was placed over the lesion and the in-stent balloon was deployed at 11atm for 15 seconds, and then inflated at 18atm for 18seconds. A second 180cm Intuition Wire was advanced down the Circumflex proper. A Euphora 1.5 x 6mm balloon was advanced down the Intuition Wire in the circumflex proper without success. The Intuition Wire was removed and exchanged for a Melt Superintendant 50 Wire. The Euphora 1.5 x 6mm balloon was advanced down the Melt Superintendant 50 Wire was was deployed at 14atm for 30seconds and then inflated at 16atm for 10seconds. The Euphora balloon was removed. A 3.75 x 12mm NC Emerge balloon was advanced down the Intuition wire in the OM and deployed at 17atm for 24seconds and inflated for at 12 [place] for 14seconds. There was ?% residual post stent implantation with improvement in flow from JHON ? to JHON III flow post stent implantation. Patient Problems: Problems Problem Status Onset Acute coronary syndrome Acute Chest pain Acute Myocardial infarct Acute
[2019-01-06] MEDS ORDERED: LORazepam 2 MG/ML INJ IVP PRN (15:12)
[2019-01-06] MEDS ORDERED: NITROGLYCERIN 0.4 MG BTL SL PRN (15:12)
[2019-01-06] MEDS ORDERED: ATROPINE SULFATE 1 MG/10 ML SYR IVP PRN (15:12)
[2019-01-06] MEDS ORDERED: OXYCODONE/APAP 5/325 TAB PO PRN (15:12)
[2019-01-06] MEDS ORDERED: TEMAZEPAM 15 MG CAP PO PRN (15:12)
[2019-01-06] MEDS ORDERED: HYDROCODONE/APAP 5/325 TAB PO PRN (15:12)
[2019-01-06] MEDS ORDERED: ONDANSETRON 4 MG/2 ML VIAL IVP PRN (15:12)
[2019-01-06] MEDS ORDERED: NS 1,000 ML IV SCH (15:15)
[2019-01-06] MEDS ORDERED: POLYETHYLENE GLYCOL 3350 17 GM PKT PO PRN (15:15)
[2019-01-06] MEDS ORDERED: PROTEASE PO PRN (15:15)
[2019-01-06] MEDS ORDERED: AMYLASE PO PRN (15:15)
[2019-01-06] MEDS ORDERED: LIPASE PO PRN (15:15)
[2019-01-06] MEDS ORDERED: KETOROLAC 30 MG/1 ML SDV ONE (15:46)
[2019-01-06] MEDS ORDERED: KETOROLAC 30 MG/1 ML SDV IVP ONE (16:15)
[2019-01-06] MEDS ORDERED: KETOROLAC 15 MG/1 ML SDV IVP ONE (16:15)
[2019-01-06] MEDS: AMYLASE PO SCH (20:44)
[2019-01-06] MEDS: LIPASE PO SCH (20:44)
[2019-01-06] MEDS: PROTEASE PO SCH (20:44)
[2019-01-06] MEDS: FAMOTIDINE 20 MG TAB PO SCH (20:45)
[2019-01-07 04:20] LABS: PLATELET COUNT 153 10^3/uL (150-400)
[2019-01-07] MEDS ORDERED: ASPIRIN EC 325 MG TAB PO SCH (09:00)
[2019-01-07] MEDS ORDERED: CARVEDILOL CR 40 MG CAP PO SCH (09:00)
[2019-01-07] MEDS ORDERED: ROSUVASTATIN CALCIUM 20 MG TAB PO SCH (09:00)
[2019-01-07] MEDS ORDERED: CHOLECALCIFEROL VIT D3 1,000 UNITS TAB PO SCH (09:00)
[2019-01-07] MEDS ORDERED: PRASUGREL HCL 10 MG TAB PO SCH (09:00)
[2019-01-07] MEDS ORDERED: LISINOPRIL 2.5 MG TAB PO SCH (09:00)
[2019-01-07] MEDS ORDERED: PRESERVISION AREDS2 FORMULA EYE VIT 1 EACH PO SCH (09:00)
[2019-01-07] MEDS: FAMOTIDINE 20 MG TAB PO SCH (09:28)
[2019-01-07] MEDS: PROTEASE PO SCH ×2 (09:39→13:19)
[2019-01-07] MEDS: AMYLASE PO SCH ×2 (09:39→13:19)
[2019-01-07] MEDS: LIPASE PO SCH ×2 (09:39→13:19)
--- NOTE | 2019-01-07 09:50 | CPEKG ---
Test Reason : OPEN Blood Pressure : / mmHG Vent. Rate : 066 BPM Atrial Rate : 067 BPM P-R Int : 165 ms QRS Dur : 103 ms QT Int : 437 ms P-R-T Axes : 067 -74 043 degrees QTc Int : 458 ms Sinus rhythm non-specific ST depression Inferior infarct, old Confirmed by Jasson Spears ([id number]) on 01/07/2019 9:50:26 AM Referred By: Vineet Xie Confirmed By:Jasson Spears
--- NOTE | 2019-01-07 09:54 | CPEKG ---
Test Reason : OPEN Blood Pressure : / mmHG Vent. Rate : 071 BPM Atrial Rate : 071 BPM P-R Int : 164 ms QRS Dur : 105 ms QT Int : 431 ms P-R-T Axes : 063 -73 -39 degrees QTc Int : 469 ms Sinus rhythm non-specific ST depressions Inferior infarct, age indeterminate Confirmed by Jasson Spears ([id number]) on 01/07/2019 9:53:45 AM Referred By: Vineet Xie Confirmed By:Jsason Spears
[2019-01-07 11:00] VITALS: BP 88/56
--- NOTE | 2019-01-07 11:28 | ASDISCHSUM ---
Discharge Information Plan Status:Home with No Needs Medically Cleared to Leave:01/07/2019 Discharge Date:01/07/2019 CM D/C Disposition:Home, Routine, Self-Care ADT D/C Disposition: Projected Discharge Date:01/07/2019 Transportation at D/C: Discharge Delay Reason: Follow-Up Date:01/07/2019 Discharge Slot: Final Diagnosis: Placement Information Patient Contact Information Contact Name:JES MCDONALD Relationship: Address:[address] City:[place] Phone: State/Zip Code:[place] [address] Email: Financial Information Financial Class:Medicare Advantage Plans Primary Plan Desc:[employer] MEDICARE ADV Primary Plan Number:[id number] Secondary Plan Desc: Secondary Plan Number: Assessment Information LACE LACE Length of stay for Answers: Less than 1 day current admission Acuity / Level of Answers: No Care: Did the patient have an inpatient admission? Comorbidities - select Answers: Opioid dependence all that apply / Chronic pain # of Emergency department Answers: 1-2 visits in the last 6 months Score: 5 Date Signed: 01/07/2019 11:27 AM Electronically Signed By:Lilia Toure RN Intervention Information
--- NOTE | 2019-01-07 22:16 | GDS ---
[f rep st] DISCHARGE SUMMARY ADMISSION DIAGNOSIS: 1. Coronary artery disease. 2. Planned percutaneous coronary intervention. DISCHARGE DIAGNOSIS: Percutaneous coronary intervention of the left COURSE OF HOSPITALIZATION: The patient was seen by Dr. Vineet Xie in clinic with recommendations t o proceed with cardiac catheterization [QAMARKER]. He was taken to the cardiac cath 01/06 where a stent was placed in left circumflex and OM with no complications. ambulatin g chest pain or shortness of breath at this time stable for discharg e medications /[id number]/MODL
--- NOTE | 2019-01-08 05:26 | GDS ---
[f rep st] DISCHARGE SUMMARY ADMITTING DIAGNOSES: 1. Coronary artery disease. 2. Planned cardiac angiogram with possible percutaneous coronary intervention. DISCHARGE DIAGNOSIS: Status post percutaneous coronary intervention of the left circumflex and obtus e marginal. He was brought to the cardiac catheterization laboratory technician by Dr. Vineet Xie on 01/06/2019, where he was able to succes sfully place stent to the left circumflex and OM. Cath insertion site was in the left groin, which i s well healed with no ecchymosis or induration or pain. He has been up ambulating with no dizziness, lightheadedness, chest pain, or shortness of breath. The desk monitor shows a regular sinus rh ythm with no ectopy. At this time, he currently is stable for discharge. MEDICATIONS: As documented in his chart. DISCHARGE PLAN: He will follow up with Dr. Xie on January 18 at [facility] in [place]. Groin site instructions were provided reminding him no lifting, pushing, or pulling greater than 10 p ounds for 7 days. No sitting in a tub of water for 7 days. He can walk leisurely with no aggressive exercise. Groin care was reviewed with he and his . Keep the area clean with soap and water. No ointments to site. Should groin site bleed, he is to hold firm pressure. Should it not stop bleeding, he is to go to [facility] emergency room. At this time, he currently is stable for discharge. /[id number]/MODL
== END 2019-01-07 13:10 | disposition home or self-care (01) ==
LOC: FCATH 10:29 → F2W 15:12
PROVIDERS: ADMIT Internal Medicine Cardiovascular Disease; ATTEND Internal Medicine Cardiovascular Disease
PROC: 027034Z Dilation of Coronary Artery, One Artery with Drug-eluting Intraluminal Device, Percutaneous Approach (ICD-10-PCS; principal; 2019-01-06)
PROC: B2111ZZ Fluoroscopy of Multiple Coronary Arteries using Low Osmolar Contrast (ICD-10-PCS; principal; 2019-01-06)
PROC: B2151ZZ Fluoroscopy of Left Heart using Low Osmolar Contrast (ICD-10-PCS; principal; 2019-01-06)
PROC: B241ZZ3 Ultrasonography of Multiple Coronary Arteries, Intravascular (ICD-10-PCS; principal; 2019-01-06)
PROC: 4A023N7 Measurement of Cardiac Sampling and Pressure, Left Heart, Percutaneous Approach (ICD-10-PCS; principal; 2019-01-06)
DX: I25.110 Atherosclerotic heart disease of native coronary artery with unstable angina pectoris (principal); I25.2 Old myocardial infarction
CPT/HCPCS: 92978; 93005; 93454; C1725; C1753; C1760; C1769; C1874; C1887; C9600; G0378; J0583; J1644; J1885; J2250; J3010; Q9967

== ENCOUNTER → 2019-01-18 | Outpatient (CLI) | payer OTHER | LOC: FIMAGING 15:01 | PROVIDERS: ATTEND Internal Medicine Cardiovascular Disease | DX: R10.30 Lower abdominal pain, unspecified (principal) ==

== ENCOUNTER 2019-01-20 23:49 | Observation (INO) | payer OTHER ==
[2019-01-20] MEDS ORDERED: NS 1,000 ML IV ONE (23:53)
--- NOTE | 2019-01-20 23:56 | EDPHY ---
H & P Stated Complaint: rapid HR, palpitations starting at rest @1900. No pain/ tightness Time Seen by Provider: 01/20/19 23:56 HPI/ROS: HPI CHIEF COMPLAINT: Palpitations HISTORY OF PRESENT ILLNESS: 68-year-old male, presents emergency room palpitations. He denies any chest pain or chest pressure or shortness of breath. He states he feels palpitations. He states this started around 7:30 p.m. Tonight. He was at rest watching TV. Developed palpitations. He states he feels like he is skipping beats. He denies any chest pain, chest pressure, denies shortness of breath, denies feeling ill or fatigue. Maybe some mild lightheadedness. Palpitations continued. He has had this before. States typically goes away when he works out. He got on his stationary bike at home and try to get this to go away however did not so he decided come the emergency room. Upon arrival to the emergency room he denies any chest pain. He does complain of palpitations. 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 Past Medical History: Significant past medical history for coronary artery disease with stents, hypertension, gastric ulcers, esophageal spasm Past Surgical History: Recent cardiac stent. Social History: Denies daily use of drugs alcohol tobacco. Family History: Noncontributory ROS REVIEW OF SYSTEMS: 10 Systems were reviewed and negative with the exception of the elements mentioned in the history of present illness. Exam Constitutional triage nursing summary reviewed, vital signs reviewed, awake/ alert. Eyes normal conjunctivae and sclera, EOMI, PERRLA. HENT normal inspection, atraumatic, moist mucus membranes, no epistaxis, neck supple/ no meningismus, no raccoon eyes. Respiratory clear to auscultation bilaterally, normal breath sounds, no respiratory distress, no wheezing. Cardiovascular rate normal, regular rhythm, no murmur, no edema, distal pulses normal. Gastrointestinal soft, non-tender, no rebound, no guarding, normal bowel sounds, no distension, no pulsatile mass. Genitourinary no CVA tenderness. Musculoskeletal no midline vertebral tenderness, full range of motion, no calf swelling, no tenderness of extremities, no meningismus, good pulses, neurovascularly intact. Skin pink, warm, & dry, no rash, skin atraumatic. Neurologic awake, alert and oriented x 3, AAOx3, moves all 4 extremities equally, motor intact, sensory intact, CN II-XII intact, normal cerebellar, normal vision, normal speech. Psychiatric normal mood/affect. Heme/Lymph/Immune no lymphadenopathy. Differential Diagnosis: Differential diagnosis includes but is not limited to: ACS, atypical chest pain, pneumothorax, pneumonia, pulmonary embolism, aortic dissection, congestive heart failure, tumor, musculoskeletal pain, esophageal pain, GERD, peptic ulcer disease, pancreatitis Medical Decision Making: Plan for this patient IV establishment, wheel and caster repairer, EKG, check troponin, electrolytes, magnesium, chest x-ray gentle IV fluids and re-evaluate. Re-evaluation: EKG interpretation by me on record in [employer] system. Impression time of EKG 2355 sinus rhythm rate of 88 ventricular trigeminy, inferior infarct with Q- waves present. No ST elevation. When I compare this EKG currently to his old EKG dated 12/31/2018 very similar in morphology however this EKG today has frequent PVCs trigeminy. Inferior infarct seen on EKG similar to previous EKG. Troponin 0.10. Given the patient's elevated troponin I have consult Cardiology spoke with Dr. Spears. We discussed case in detail. The patient notes EKGs have been reviewed by him as well. The patient has trigeminy here. Patient has elevated troponin without any chest pain or chest pressure. Plan for admission to the hospital for further evaluation observation overnight given the elevated troponin and palpitations. I have consult the hospitalist service Dr. Persaud agrees to admit. 1244AM. Source: Patient - Personal History Current Tetanus/Diphtheria Vaccine: Yes Current Tetanus Diphtheria and Acellular Pertussis (TDAP): Yes - Medical/Surgical History Hx Asthma: No Hx Chronic Respiratory Disease: No Hx Diabetes: No Hx Cardiac Disease: No Hx Renal Disease: No Hx Cirrhosis: No Hx Alcoholism: No Hx HIV/AIDS: No Hx Splenectomy or Spleen Trauma: No Other PMH: irrgular heartbeat, esophogus spasm, tonsil CA, hernia, knee surgery , foot surgery - Social History Smoking Status: Former smoker Constitutional: Initial Vital Signs Temperature (C) 36.5 C 01/20/19 23:53 Heart Rate 91 01/20/19 23:53 Respiratory Rate 20 01/20/19 23:53 Blood Pressure 138/72 H 01/20/19 23:53 O2 Sat (%) 100 01/20/19 23:53 O2 Delivery Mode Room Air Allergies/Adverse Reactions: No Known Allergies Allergy (Verified 01/20/19 23:52) Home Medications: Medication Instructions Recorded C/E/Zn/Cu/OM3/DHA/EPA/LUT/ZEAX 2 each PO DAILY 12/31/18 [Preservision Areds 2 Softgel] Carvedilol Phosphate [Coreg Cr] 40 mg PO DAILY 12/31/18 Cholecalciferol Vit D3 [Vitamin D3 1,000 units PO DAILY 12/31/18 (*)] Herbals/Supplements -Info Only 1 ea PO DAILY 12/31/18 Lansoprazole [Prevacid] 30 mg PO DAILY 12/31/18 Lipase/Protease/Amylase [Cre[place] Dr 1 each PO TID PRN 12/31/18 36,000 Units Capsule] Lipase/Protease/Amylase [Crejavi Dr 2 each PO TIDMEAL 12/31/18 36,000 Units Capsule] Ranitidine HCl [Zantac] 300 mg PO HS 12/31/18 Lisinopril [Zestril 2.5 mg (*)] 2.5 mg PO DAILY tab 01/03/19 Rosuvastatin Calcium [Crestor 20mg 20 mg PO DAILY #30 tab 01/03/19 (*)] Aspirin EC [Aspirin EC 325 mg (*)] 325 mg PO DAILY tab 01/07/19 Prasugrel HCl [Effient 10mg (*)] 10 mg PO DAILY tab 01/07/19 Ascorbic Acid [Vitamin C 250 mg 250 mg PO DAILY@11 01/21/19 (*)] Ferrous Sulfate [Ferrous Sulf 325 325 mg PO DAILY@11 01/21/19 MG (*)] Medical Decision Making - Diagnostics Imaging Results: Imaging Impressions Chest X-Ray 01/20/19 23:54 Impression: Negative. No acute process. - Data Points Laboratory Results: Laboratory Results 01/21/19 00:00 01/21/19 00:00 Medications Given: Discontinued Medications Lipase/Protease/Amylase (Creon) 6 cap PO TIDMEAL MEKA Stop: 07/20/19 11:59 Last Admin: 01/21/19 11:37 Dose: 6 cap Aspirin (Aspirin) 325 mg PO DAILY MEKA Stop: 07/20/19 08:59 Last Admin: 04/19/19 09:16 Dose: 325 mg Carvedilol (Coreg Cr) 40 mg PO DAILY MEKA Stop: 07/20/19 09:29 Last Admin: 01/21/19 11:36 Dose: 40 mg Famotidine (Pepcid) 20 mg PO BID MEKA Stop: 07/20/19 02:44 Last Admin: 01/21/19 09:16 Dose: 20 mg Sodium Chloride (Ns) 1,000 mls @ 0 mls/hr IV EDNOW ONE; Wide Open PRN Reason: Protocol Stop: 01/20/19 23:54 Last Admin: 01/21/19 00:00 Dose: 1,000 mls Lisinopril (Zestril) 2.5 mg PO DAILY MEKA Stop: 07/20/19 09:29 Last Admin: 01/21/19 11:36 Dose: 2.5 mg Prasugrel (Effient) 10 mg PO DAILY MEKA Stop: 07/20/19 09:29 Last Admin: 01/21/19 11:36 Dose: 10 mg Rosuvastatin Calcium (Crestor) 20 mg PO DAILY MEKA Stop: 07/20/19 09:29 Last Admin: 01/21/19 11:36 Dose: 20 mg Point of Care Test Results: Chemistry 01/20/19 23:59 POC Troponin I 0.10 ng/mL H ng/mL (0.00-0.08) Departure - Departure Disposition: [facility] Acute Clinical Impression: Palpitations, Elevated troponin Condition: Fair
[2019-01-21 00:07] LABS: PLATELET COUNT 167 10^3/uL (150-400)
[2019-01-21] MEDS ORDERED: ONDANSETRON 4 MG/2 ML VIAL IVP PRN (01:38)
[2019-01-21] MEDS ORDERED: ACETAMINOPHEN 325 MG TAB PO PRN (01:38)
[2019-01-21] MEDS ORDERED: HYDROCODONE/APAP 5/325 TAB PO PRN (01:38)
[2019-01-21] MEDS ORDERED: ONDANSETRON DISINTEGRATING 4 MG TAB PO PRN (01:38)
[2019-01-21] MEDS ORDERED: NITROGLYCERIN 0.4 MG BTL SL PRN (01:42)
[2019-01-21] MEDS ORDERED: NS 1,000 ML IV SCH (01:45)
[2019-01-21] MEDS: FAMOTIDINE 20 MG TAB PO SCH ×2 (02:48→09:16)
--- NOTE | 2019-01-21 07:46 | CPEKG ---
Test Reason : OPEN Blood Pressure : / mmHG Vent. Rate : 088 BPM Atrial Rate : 086 BPM P-R Int : 156 ms QRS Dur : 110 ms QT Int : 385 ms P-R-T Axes : 055 -86 -38 degrees QTc Int : 466 ms Sinus rhythm Ventricular trigeminy Inferior infarct, age indeterminate Confirmed by Deandre Martin ([id number]) on 01/21/2019 7:45:55 AM Referred By: Deandre Martin Confirmed By:Deandre Martin
[2019-01-21 07:53] LABS: PLATELET COUNT 143 10^3/uL (150-400)
--- NOTE | 2019-01-21 08:11 | PDGENHP ---
History and Physical - Chief Complaint Palpitations, chest discomfort - History of Present Illness Source-patient provides history appears reliable. EMR was reviewed and case discussed with ED provider. HPI - This a pleasant 68-year-old gentleman (who goes by name of "JAMES") with past medical history significant for CAD status post stenting, HLD, GERD, history of soft gel spasms who presents emergency department today with complaints of palpitations and chest discomfort. Patient reports his longstanding history of PVCs. He generally is able to control symptoms and get them to the preserved with exertion. After dinner patient symptoms started while he was at rest. An attempt to try to treat his PVCs patient got on the treadmill. His symptoms did not resolve. Patient also describes he has had 2 twinges of pain like sharp needle stabbing in his central chest. He denies any associated shortness of breath, dyspnea on exertion. Patient does report some generalized weakness and fatigue. He denies any PND, lower extremity edema orthopnea. Patient denies any cough congestion or rhinorrhea. No fevers or chills. On 12/31/2018 patient presented to the ED with complaints of chest pain that were not resolved with the usual treatments. He is on taken to the rn cardiac cath and found to have a complete occlusion of the RCA on critical occlusion of the left circ and moderate to closure will LAD. His LVEF at that time was 35-40%. Plan was for patient to return several days after discharge for angioplasty of the left circ. These on did get completed a also had a stent put in the OM. Since that time patient has denied any chest pains or dyspnea on exertion. He has been otherwise able to maintain good activity. History Information - Allergies/Home Medication List Allergies/Adverse Reactions: No Known Allergies Allergy (Verified 01/20/19 23:52) Home Medications: C/E/Zn/Cu/OM3/DHA/EPA/LUT/ZEAX [Preservision Areds 2 Softgel] 2 each PO DAILY [Last Taken 01/20/19] Carvedilol Phosphate [Coreg Cr] 40 mg PO DAILY 12/31/18 [Last Taken 01/20/19] Cholecalciferol Vit D3 [Vitamin D3 (*)] 1,000 units PO DAILY 12/31/18 [Last Taken 01/20/19] Herbals/Supplements -Info Only 1 ea PO DAILY 12/31/18 [Last Taken Unknown] Lansoprazole [Prevacid] 30 mg PO DAILY 12/31/18 [Last Taken 01/20/19] Lipase/Protease/Amylase [Vishnu Delacruz 36,000 Units Capsule] 1 each PO TID PRN [Last Taken Unknown] Lipase/Protease/Amylase [Vishnu Delacruz 36,000 Units Capsule] 2 each PO TIDMEAL [Last Taken 01/20/19 18:00] Ranitidine HCl [Zantac] 300 mg PO HS 12/31/18 [Last Taken 01/19/19] Ascorbic Acid [Vitamin C 250 mg (*)] 250 mg PO DAILY@01/21/19 [Last Taken ] Ferrous Sulfate [Ferrous Sulf 325 MG (*)] 325 mg PO DAILY@01/21/19 [Last Taken 01/20/19] I have personally reviewed and updated: family history, medical history, social history, surgical history - Past Medical History Additional medical history: CAD status post stent, history esophageal spasm, HLD , GERD, PVCs, history of gastric ulcer gastritis, tonsillar cancer 2005 status post resection with lymph node dissection repair in remission, colonic polyp - Surgical History Additional surgical history: Tonsillectomy on the right with lymph node dissection, cardiac cath on 12/31 and 4 1 on the RCA and circumflex, EGD, vasectomy, bilateral hernia repair, right knee arthroscopy - Family History Additional family history: Father with history CAD in at advanced age. - Social History Smoking Status: Former smoker Tobacco Use: Cigarettes Alcohol Use: Sober Drug Use: None Additional social history: Patient is . 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 Cor status-full. Review of Systems Review of Systems: ROS: 10pt was reviewed & negative except for what was stated in HPI & below Physical Exam Physical Exam: Selected Entries 01/20/19 23:53 Heart Rate 91 Respiratory 20 Rate O2 Sat (%) 100 Temperature (C) 36.5 C Blood Pressure 138/72 H Mean Arterial 94 Pressure (MAP) O2 Delivery Room Air Mode Temperature Oral Source Temp Pulse Resp BP Pulse Ox 36.9 C 85 18 112/72 98 01/21/19 07:25 01/21/19 07:25 01/21/19 07:25 01/21/19 07:25 01/21/19 07:25 Constitutional: no apparent distress, other (NAD. Pleasant adult gentleman is resting comfortably in bed his is a bedside. Appears younger than stated age. Patient does appear concern.), No uncomfortable Eyes: PERRL, anicteric sclera, EOMI, No scleral injection Ears, Nose, Mouth, Throat: moist mucous membranes, other (No nasal discharge.), No poor dentition Cardiovascular: no murmur, rub, or gallop, pulses symmetric bilaterally, other ( Heart rhythm is regularly irregular), No edema Peripheral Pulses: 2+: dorsalis-pedis (R), dorsalis-pedis (L) Respiratory: no respiratory distress, no rales or rhonchi, clear to auscultation , No dullness to percussion Gastrointestinal: normoactive bowel sounds, soft, non-tender abdomen, no palpable masses, No guarding, No distension Genitourinary: no bladder tenderness, No hale in urethra Skin: warm, normal color, no rashes or abrasions, No rash Musculoskeletal: full muscle strength, no muscle tenderness, other (Patient sits up independently. Moves all extremities.), No generalized weakness Neurologic: AAOx3, sensation intact bilaterally, other (Grossly nonfocal exam.) , No facial droop Psychiatric: interacting appropriately, thought process linear, anxious, other ( Thought process content questions appropriate. Patient pleasant cooperative.) Lab Data & Imaging Review 01/21/19 07:32 01/21/19 07:32 WBC 6.23 10^3/uL (3.80-9.50) 01/21/19 07:32 RBC 4.68 10^6/uL (4.40-6.38) 01/21/19 07:32 Hgb 14.0 g/dL (13.7-17.5) 01/21/19 07:32 Hct 41.1 % (40.0-51.0) 01/21/19 07:32 MCV 87.8 fL (81.5-99.8) 01/21/19 07:32 MCH 29.9 pg (27.9-34.1) 01/21/19 07:32 MCHC 34.1 g/dL (32.4-36.7) 01/21/19 07:32 RDW 15.5 % (11.5-15.2) H 01/21/19 07:32 Plt Count 143 10^3/uL (150-400) L 01/21/19 07:32 MPV 10.4 fL (8.7-11.7) 01/21/19 07:32 Neut % (Auto) 71.7 % (39.3-74.2) 01/21/19 07:32 Lymph % (Auto) 13.0 % (15.0-45.0) L 01/21/19 07:32 Blackford % (Auto) 12.7 % (4.5-13.0) 01/21/19 07:32 Eos % (Auto) 1.9 % (0.6-7.6) 01/21/19 07:32 Baso % (Auto) 0.5 % (0.3-1.7) 01/21/19 07:32 Nucleat RBC Rel Count 0.0 % (0.0-0.2) 01/21/19 07:32 Absolute Neuts (auto) 4.47 10^3/uL (1.70-6.50) 01/21/19 07:32 Absolute Lymphs (auto) 0.81 10^3/uL (1.00-3.00) L 01/21/19 07:32 Absolute Monos (auto) 0.79 10^3/uL (0.30-0.80) 01/21/19 07:32 Absolute Eos (auto) 0.12 10^3/uL (0.03-0.40) 01/21/19 07:32 Absolute Basos (auto) 0.03 10^3/uL (0.02-0.10) 01/21/19 07:32 Absolute Nucleated RBC 0.00 10^3/uL (0-0.01) 01/21/19 07:32 Immature Gran % 0.2 % (0.0-1.1) 01/21/19 07:32 Immature Gran # 0.01 10^3/uL (0.00-0.10) 01/21/19 07:32 RBC/WBC/PLT Morphology TNP 01/21/19 00:00 Platelet Estimate TNP 01/21/19 00:00 Sodium 139 mEq/L (135-145) 01/21/19 07:32 Potassium 4.2 mEq/L (3.5-5.2) 01/21/19 07:32 Chloride 109 mEq/L (97-110) 01/21/19 07:32 Carbon Dioxide 22 mEq/l (22-31) 01/21/19 07:32 Anion Gap 8 mEq/L (6-14) 01/21/19 07:32 BUN 18 mg/dL (7-23) 01/21/19 07:32 Creatinine 0.8 mg/dL (0.7-1.3) 01/21/19 07:32 Estimated GFR > 60 01/21/19 07:32 Glucose 121 mg/dL (70-100) H 01/21/19 07:32 Calcium 9.1 mg/dL (8.5-10.4) 01/21/19 07:32 Magnesium 2.0 mg/dL (1.6-2.3) 01/21/19 07:32 Total Bilirubin 0.6 mg/dL (0.1-1.4) 01/21/19 00:00 Conjugated Bilirubin 0.4 mg/dL (0.0-0.5) 01/21/19 00:00 Unconjugated Bilirubin 0.2 mg/dL (0.0-1.1) 01/21/19 00:00 AST 26 IU/L (17-59) 01/21/19 00:00 ALT 33 IU/L (21-72) 01/21/19 00:00 Alkaline Phosphatase 150 IU/L (38-126) H 01/21/19 00:00 POC Troponin I 0.10 ng/mL (0.00-0.08) H 01/20/19 23:59 NT-Pro-B Natriuret Pep 769 pg/mL (0-125) H 01/21/19 00:00 Total Protein 7.6 g/dL (6.3-8.2) 01/21/19 00:00 Albumin 4.4 g/dL (3.5-5.0) 01/21/19 00:00 Imaging Review: Chest x-ray reviewed report still pending. No acute findings. Visualized and Interpreted EKG results: Yes EKG additional interpertation: Normal sinus rhythm in the 80s. Ventricular trigeminy. Q-waves in the inferior leads. QTC 466. No acute ST changes. Assessment & Plan Assessment: This a pleasant 68-year-old gentleman (who goes by name of "JAMES") with past medical history significant for CAD status post stenting, HLD, GERD, history of soft gel spasms who presents emergency department today with complaints of palpitations and chest discomfort. Elevated troponin (Acute) - patient denies any significant chest pain he just notices the discomfort associated with feeling each PVC. Serial troponins. Patient had taken his Effient and aspirin earlier in the day. Cardiology consult in the morning. Palpitations (Acute) - symptomatic PVCs. Not previously identified this pattern on previously available EKGs. Rate and blood pressure is controlled. Patient has been on Coreg Fatigue-likely multifactorial primarily cardiac. HLD - resume statin GERD - resume PPI Hyperglycemia - mildly elevated nonfasting lab. Monitor with repeat a.m. Labs. FEN - IV fluids. NPO after midnight pending Cardiology recommendations and repeat laboratory studies. Electrolyte monitoring replacement if needed. PPX-SCDs. Hold off anticoagulation at this time. Cor status-full Disposition-patient admitted to observation status on the PCU floor pending Cardiology recommendations and additional studies.
[2019-01-21] MEDS ORDERED: ASPIRIN 325 MG TAB PO SCH (09:00)
[2019-01-21] MEDS ORDERED: CARVEDILOL CR 40 MG CAP PO SCH (09:30)
[2019-01-21] MEDS ORDERED: ROSUVASTATIN CALCIUM 20 MG TAB PO SCH (09:30)
[2019-01-21] MEDS ORDERED: PRASUGREL HCL 10 MG TAB PO SCH (09:30)
[2019-01-21] MEDS ORDERED: LISINOPRIL 2.5 MG TAB PO SCH (09:30)
[2019-01-21] MEDS ORDERED: FERROUS SULFATE 325 MG TAB PO SCH (11:00)
[2019-01-21 11:16] VITALS: BP 107/72
[2019-01-21] MEDS ORDERED: LIPASE 12,000/AMYLASE/PROTEASE (CREON) 1 CAP PO PRN (12:00)
[2019-01-21] MEDS ORDERED: LIPASE 12,000/AMYLASE/PROTEASE (CREON) 1 CAP PO SCH (12:00)
--- NOTE | 2019-01-21 14:17 | GCON ---
[f rep st] CONSULTATION DATE OF CONSULTATION: 01/21/2019 CHIEF COMPLAINT: We have been asked by Dr. Godinez to evaluate the patient with chest pain and palpit ations. HISTORY OF PRESENT ILLNESS: The patient is a 68-year-old gentleman with known coronary artery diseas e who presented to the emergency department with symptoms of chest pain and palpitations. The chest pain was described as a sharp stabbing pain, lasting less than a second. Reports 2 episodes of this chest pain. He denies obvious precipitating or relieving factors. The chest pain was not associated with nausea, vomiting, or diaphoresis. The chest pain was not all like his previous anginal-type sy mptoms, which he described as a squeezing sensation in the center of his chest extending into his lef t shoulder and left under arm. The patient also reports symptoms of palpitations. The patient has a long history of palpitations dating back approximately 20 years. He attributes his palpitations to PVCs. The palpitations are typically suppressed with activity. The patient states the palpitations were more significant or frequent than his usual episodes of palpitations, prompting him to seek furt her evaluation. The patient denies anginal-type chest pain, as well as symptoms of orthopnea and PND . When he presented to the emergency department he had an EKG performed demonstrating sinus rhythm, PVCs and inferior infarct, old. His initial troponin was borderline elevated at 0.088. PAST MEDICAL HISTORY: 1. Coronary artery disease. The patient was diagnosed with coronary artery disease in December 2018 wh en he presented with an acute inferior ST-segment elevation myocardial infarction. He was treated wi th percutaneous coronary intervention of his right coronary artery at that time. He underwent staged percutaneous coronary intervention of his circumflex coronary artery in January 2019. 2. Ischemic cardiomyopathy. Patient has a history of an ischemic cardiomyopathy with an ejection fr action of 35% to 40%. He has not been re-evaluated since complete revascularization. 3. PVCs. 4. Hypertension. 5. Hyperlipidemia. 6. Gastroesophageal reflux disease. 7. Tonsillar cancer. MEDICATIONS: Please see medicine reconciliation form. ALLERGIES: No known drug allergies. SOCIAL HISTORY: Patient lives with his . He remains moderately active walking. He does not smo ke. He denies problems with alcohol. His son is to be tomorrow. FAMILY HISTORY: Noncontributory. REVIEW OF SYSTEMS: A 10-point review of systems is negative except as noted in HPI. PHYSICAL EXAMINATION: GENERAL: Patient is resting in bed. He is somewhat anxious. VITAL SIGNS: T emperature is afebrile. Pulse is 67, blood pressure 107/72, respiratory rate 18, SaO2 97% on room ai r. HEENT: Normocephalic, atraumatic. Extraocular muscles intact. NECK: No JVD. No bruits. LUNG S: Clear to auscultation bilaterally. CARDIOVASCULAR: Regular rate and rhythm. S1, S2. No murmur s, rubs, or gallops appreciated. ABDOMEN: Soft, nontender. Normoactive bowel sounds. No hepatospl enomegaly noted. EXTREMITIES: No clubbing, cyanosis, or edema. SKIN: No evidence of rashes. NEUR O: Patient is awake, alert, and oriented x3. LABORATORY: White blood cell count 6.23, hemoglobin 14.0, hematocrit 41.1, platelet count 143. Sodi um 139, potassium 4.2, chloride 109, CO2 22, BUN 18, creatinine 0.8. Troponin is 0.088. EKG demonstrates sinus rhythm with premature ventricular contractions and old inferior myocardial inf arction. Telemetry monitoring demonstrates isolated premature ventricular contractions with no evidence of sig nificant arrhythmias. ASSESSMENT AND PLAN: The patient is a 68-year-old gentleman with: 1. Elevated troponin. The patient has a mildly elevated troponin of 0.088. He is status post a lar ge inferior myocardial infarction on December 31, 2018. His peak troponin at that time was 92.9. Suspe ct his current troponin elevation is the tail end of his myocardial infarction. We will plan on obta ining a repeat troponin to verify this. If the repeat troponin is trending down, this would indicate that is the case. If he were to have a subsequent bump, I would be concerned about a secondary card iac event, although his current symptoms of chest pain are very atypical. 2. Palpitations. The patient has a 20-year history of palpitations secondary to premature ventricul ar contractions. The premature ventricular contractions tend to be most notable in the p.m. and are improved during the day. The premature ventricular contractions are suppressed with physical activit y. On the evening of admission, patient became concerned that his palpitations were not resolving as they typically would. On telemetry monitoring, patient was noted to have isolated premature ventric ular contractions with no complex ventricular ectopy. Discussed that premature ventricular contracti ons are typically a nuisance problem and not necessarily a marker of significant cardiac pathology. Also discussed treatment options including observation, beta-kamla therapy, anti-arrhythmic therapy and ablation. The patient is already on a reasonable dose of beta-kamla therapy. Also discussed EP evaluation. 3. Chest pain. Patient reports 2 episodes of chest pain described as a stabbing sensation, lasting less than a second. This is not like his previous anginal-type symptoms. His EKG demonstrates an ol d inferior infarct with no acute ST or T-wave changes. The patient does have a mildly elevated tropo katia as noted above. Suspect this is the tail end of his previous myocardial infarction. Will obtain a repeat troponin level, if this is trending down suspect this does not represent ischemia and does not require further evaluation. /[id number]/MODL
--- NOTE | 2019-01-21 14:53 | ASDISCHSUM ---
Discharge Information Plan Status:Home with No Needs Medically Cleared to Leave:01/21/2019 Discharge Date:01/21/2019 01:40 PM CM D/C Disposition:Home, Routine, Self-Care ADT D/C Disposition:Home, Routine, Self-Care Projected Discharge Date:01/21/2019 01:40 PM Transportation at D/C: Discharge Delay Reason: Follow-Up Date:01/21/2019 01:40 PM Discharge Slot: Final Diagnosis: Placement Information Patient Contact Information Contact Name:JES MCDONALD Relationship: Address:[facility] City:[place] [facility] Phone: State/Zip Code:[place] [address] Email: Financial Information Financial Class:Medicare Advantage Plans Primary Plan Desc:[employer] MEDICARE ADV Primary Plan Number:[id number] Secondary Plan Desc: Secondary Plan Number: Assessment Information LACE LACE Length of stay for Answers: Less than 1 day current admission Acuity / Level of Answers: No Care: Did the patient have an inpatient admission? Comorbidities - select Answers: Coronary Artery Disease all that apply Other Notes: CONCHITA SALVADOR # of Emergency department Answers: 1-2 visits in the last 6 months Score: 4 Date Signed: 01/21/2019 02:52 PM Electronically Signed By:Lilia Toure RN Intervention Information
--- NOTE | 2019-01-21 15:50 | HOSPPROG ---
Hospitalist Progress Note Assessment/Plan: Date of Admission/Discharge: 01/21/2019 Consults: Cardiology Procedures: CXR, EKG Followup: Cardiology, PCP Hospital Course Problem List: This a pleasant 68-year-old gentleman (who goes by name of "JAMES") with past medical history significant for CAD status post stenting, HLD, GERD, history of soft gel spasms who presents emergency department today with complaints of palpitations and chest discomfort. Elevated troponin (Acute) - patient denies any significant chest pain he just notices the discomfort associated with feeling each PVC. Serial troponins. Patient had taken his Effient and aspirin earlier in the day. Cardiology consult in the morning. Palpitations (Acute) - symptomatic PVCs. Not previously identified this pattern on previously available EKGs. Rate and blood pressure is controlled. Patient has been on Coreg Fatigue-likely multifactorial primarily cardiac. HLD - resume statin GERD - resume PPI Hyperglycemia - mildly elevated nonfasting lab. Monitor with repeat a.m. Labs. FEN - IV fluids. NPO after midnight pending Cardiology recommendations and repeat laboratory studies. Electrolyte monitoring replacement if needed. PPX-SCDs. Hold off anticoagulation at this time. Cor status-full Disposition-patient admitted to observation status on the PCU floor pending Cardiology recommendations and additional studies. Objective: Vital Signs Temp Pulse Resp BP Pulse Ox 36.7 C 67 18 107/72 97 01/21/19 11:14 01/21/19 11:14 01/21/19 11:14 01/21/19 11:14 01/21/19 11:14 Laboratory Results 01/21/19 07:32 01/21/19 07:32 01/20/19 01/21/19 01/22/19 05:59 05:59 05:59 Intake Total 1200 Balance 1200 ICD10 Worksheet Patient Problems: Problems Problem Status Onset Acute coronary syndrome Acute Chest pain Acute Elevated troponin Acute Myocardial infarct Acute Palpitations Acute
--- NOTE | 2019-01-21 15:53 | PDDCSUM ---
Discharge Summary Discharge Summary: Date of Admission/Discharge: 01/21/2019 Consults: Cardiology Procedures: CXR, EKG Followup: Cardiology, PCP Hospital Course Problem List: This a pleasant 68-year-old gentleman (who goes by name of "JAMES") with past medical history significant for CAD status post stenting, HLD, GERD, history of soft gel spasms who presents emergency department today with complaints of palpitations and chest discomfort. Elevated troponin (Acute) - patient denies any significant chest pain he just notices the discomfort associated with feeling each PVC. Initial Troponin 0.088 , repeat 0.058 Patient is compliant with Effient and aspirin. Cardiology consulted on admission who suspect elevation is result of recent [place]. Palpitations (Acute) - symptomatic PVCs. Hx for past 20 yrs. Rate and blood pressure is controlled. Patient has been on Coreg which will be continued upon discharge Fatigue-likely multifactorial primarily cardiac. HLD - resume statin GERD - resume PPI Hyperglycemia - mildly elevated nonfasting lab. Time spent on discharge was >35 minutes with >50% of time spent on patient education and counseling.
[2019-01-21] MEDS ORDERED: FAMOTIDINE 20 MG TAB PO SCH (21:00)
[2019-01-22] MEDS ORDERED: PANTOPRAZOLE SODIUM 40 MG TAB PO SCH (09:00)
[2019-01-22] MEDS ORDERED: PRESERVISION AREDS2 FORMULA EYE VIT 1 EACH PO SCH (09:00)
[2019-01-22] MEDS ORDERED: ASPIRIN EC 325 MG TAB PO SCH (09:00)
== END 2019-01-21 13:40 | disposition home or self-care (01) ==
LOC: F2W 01-21 01:22
PROVIDERS: ADMIT Family Medicine; ATTEND Internal Medicine
DX: R00.2 Palpitations (principal); R53.83 Other fatigue; R73.9 Hyperglycemia, unspecified; I25.10 Atherosclerotic heart disease of native coronary artery without angina pectoris; I25.2 Old myocardial infarction; E78.5 Hyperlipidemia, unspecified; E86.9 Volume depletion, unspecified; K21.9 Gastro-esophageal reflux disease without esophagitis; Z95.5 Presence of coronary angioplasty implant and graft; Z85.09 Personal history of malignant neoplasm of other digestive organs; Z87.891 Personal history of nicotine dependence; Z82.49 Family history of ischemic heart disease and other diseases of the circulatory system
CPT/HCPCS: 71045; 93005; G0378; 84484-ER